=== PATIENT | female | born 1975 | race Caucasian/White ===

== ENCOUNTER → 2017-06-19 | Outpatient (CLI) | payer OTHER ==
[~2017-06-19] MED LIST: ALBU90OI INH; AMLO5 PO; AMLODIPINE; AZIT250 PO; BC PILLS; CEPH500 PO; CLOT1TC TOP; CODGUAEL PO; DOXY100 PO; FLUT110OIA IH; HYDACE5 PO; Keflex500 MG PO; LISI5 PO; LISINOPRIL; METF500; METF500 PO; METFORMIN; NAPR500 PO; Naprosyn500 MG PO; ONDA8ODT MM; OXYACE5T PO; PRED20 PO; RXCODGUASY PO; SULTRIDS PO; TRAM50 PO
== END | disposition home or self-care (01) ==
LOC: LAB SHORT 15:12 → LAB 15:12
DX: S21.002A Unspecified open wound of left breast, initial encounter (principal); N61.1 Abscess of the breast and nipple
CPT/HCPCS: 87070; 87147; 87205

== ENCOUNTER → 2017-10-31 | Outpatient (CLI) | payer OTHER ==
[~2017-10-31] MED LIST changes: +Bactrim Ds Tab1 EACH PO
== END ==
LOC: LAB SHORT 10:50 → LAB 10:50
DX: L03.311 Cellulitis of abdominal wall (principal)
CPT/HCPCS: 87070; 87075; 87205